=== PATIENT | female | born 1940 | race Caucasian/White ===

== ENCOUNTER 2018-07-08 06:04 | Inpatient (IN) ==
[~2018-07-08 06:04] MED LIST: BUPivacaine Liposome/PF (Exparel) Inj 20ml vial INFIL ONE; Ketorolac Inj 30 MG, Morphine Inj (Ortho Cocktail) 5 MG, BUPivacaine Inj 0.25% PF 150 MG SPLASH ONE; LIDOCAINE W/ SODIUM BICARB 0.5 ML SYR ONE; LIDOCAINE W/ SODIUM BICARB 0.5 ML SYR SUBD ONE; Lactated Ringers 1,000 ML PRIMARY IV ONE; Lactated Ringers 1,000 ML PRIMARY IV SCH; Tranexamic Acid 3,000 MG in Sodium Chloride 0.9% 100 ML IRRIG ONE; ceFAZolin Inj 2gm (Premix) 2 GM/50 ML BAG IV ONE
[2018-07-08 06:27] LABS: BILIRUBIN,URINE NEGATIVE (NEG); CLARITY,URINE CLEAR (CLEAR); COLOR,URINE YELLOW (Y); GLUCOSE, URINE (UA) NEGATIVE (NEG); OCCULT BLOOD,URINE Trace-intact (NEG); PROTEIN,URINE NEGATIVE (NEG); UROBILINOGEN,URINE 0.2 EU/dL (0.2)
[2018-07-08 06:28] LABS: URINE SAMPLE TYPE CLEAN CATCH URINE
[2018-07-08 06:31] LABS: BACTERIA,URINE RARE; SQUAMOUS EPITHELIAL CELL,UR RARE; URINE CRYSTALS FEW; WBC,URINE 0
[2018-07-08] MEDS ORDERED: PHENYLEPHRINE 10,000 MCG/1 ML VIAL ONE (06:54)
[2018-07-08] MEDS ORDERED: MIDAZOLAM 5 MG/1 ML ONE (06:54)
[2018-07-08] MEDS ORDERED: BUPIVACAINE 0.5% W/EPI MPF -30 ML VIAL IV ONE (06:55)
[2018-07-08] MEDS ORDERED: fentaNYL Inj 100 MCG/2 ML VIAL ONE (06:55)
[2018-07-08] MEDS ORDERED: Ropivacaine 0.2% VIAL 20 ML ONE (06:56)
[2018-07-08] MEDS ORDERED: ePHEDrine Inj 50 MG/ML AMP ONE (07:13)
[2018-07-08] MEDS ORDERED: Sodium Chloride 0.9% vial 60 ML ONE (07:15)
[2018-07-08] MEDS ORDERED: BACITRACIN 50,000 UNIT VIAL IRRIG ONE (07:15)
[2018-07-08] MEDS ORDERED: BUPivacaine Liposome/PF (Exparel) Inj 20ml vial INFIL ONE (07:15)
[2018-07-08] MEDS ORDERED: Sodium Chloride 0.9% 0 ML ONE (07:19)
[2018-07-08] MEDS ORDERED: Sodium Chloride 0.9% 250 ML IV ONE (07:19)
[2018-07-08] MEDS ORDERED: EPINEPHrine Inj (1:1,000) 1 mg/ml amp ONE (07:44)
[2018-07-08] MEDS ORDERED: PROPOFOL 10 MG/1 ML (200 MG/20 ML) VIAL IV ONE ×2 (08:05→09:59)
[2018-07-08] MEDS ORDERED: HYDROmorphone 2 MG/1 ML IVP PRN ×3 (09:36→14:09)
[2018-07-08] MEDS ORDERED: ATROPINE SULFATE 0.4 MG/1 ML VIAL IVP PRN (09:36)
[2018-07-08] MEDS ORDERED: LIDOCAINE W/ SODIUM BICARB 0.5 ML SYR SUBD PRN (09:36)
[2018-07-08] MEDS ORDERED: Ondansetron ODT Tab 8 MG TAB PO PRN ×3 (09:36→12:48)
[2018-07-08] MEDS ORDERED: ONDANSETRON 4 MG/2 ML VIAL IVP PRN ×2 (09:36→11:16)
--- NOTE | 2018-07-08 09:40 | CRNA.PROCE ---
Nerve Block Documentation - - Safety Measures: Time Out Taken, Site Verified - - Type of Nerve Block Used: Right Adductor Canal Nerve Block Position for Nerve Block: Supine Moniters Used During Block: EKG, SPO2, NIBP Oxygen Supplemented: Yes Sedation Used - Enter Amount in Comment Field [ANES.SEDAT]: Midazolam (mg): Yes (2), Fentanyl (mcg): Yes (50) Skin Prep Used: ChloroPrep (Twice) Draped: No Technique: Ultrasound Nerve Block Needle Used: EchoBright 100 mm Local Anesthetic - Enter Amt in Comment Field [ANES.LOCNB]: 0.5 % Bupivicaine with Epinephrine 1:200,000 (mL): Yes (10 ml in 1.5 ml alloquots), 0.2 % Ropivacaine (mL): Yes (20 ml in 1.5 ml increments) - - PreOp Block : Time In: 07:15 PreOp Block : Time Out: 07:50 Anesthesia Time - Other Weight: 52.163 kg Height: 5 ft 2 in Body Mass Index (BMI): 21.0
--- NOTE | 2018-07-08 09:42 | CRNA.PROCE ---
Central Neuraxis Block Placemt - - Safety Measures: Time Out Taken, Site Verified - - Type of Block: Subarachnoid Reason for Block: Surgical Moniters Used During Block: EKG, SPO2, NIBP Sedation Used - Enter Amount Used in Comment Field: Midazolam (mg): Yes (2 ), Fentanyl (mcg): Yes (50) Positioning: Sitting Skin Prep Used: ChloroPrep (Twice) Draped: Yes Skin Infiltration - Enter Amount Used in Comment Field: 1% Xylocaine (mL): Yes ( 2 ml) Spinal Needle Used: 22 Ella 80 mm (Took multiple passes and 3 different skin punctures to succeed) Local Anesthetic - Enter Amount Used in Comment Field: 0.75 % Bupivacaine with Dextrose (ml): Yes (1.8 ml with epi hub rinse) Additive Used - Enter Amount Used in Comment Field: Epinephrine 1:1000 Needle Rinse (mL): Yes (rinse and squirt out only) Anesthesia Time - Block Time PreOp Block : Time In: 07:15 PreOp Block : Time Out: 07:50 - Other Weight: 52.163 kg Height: 5 ft 2 in Body Mass Index (BMI): 21.0
--- NOTE | 2018-07-08 09:43 | CRNA.PROGR ---
Post Anesthesia Phase II - Post Anesthesia Phase II Patient Stable and Discharged To: Med/Surg Care Assumed By Surgeon: Carroll Chun MD Temperature: 97.7 F Pulse Rate: 51 Respiratory Rate: 23 Blood Pressure: 177/77 Pulse Ox: 98
--- NOTE | 2018-07-08 09:43 | CRNA.PROGR ---
Anesthesia Time - - Start date: 07/08/18 End date: 07/08/18 - Block Time PreOp Block : Time In: 07:15 PreOp Block : Time Out: 07:50 PreOp Block : Total Time: 35 - Total Anesthesia Time Total Anesthesia Time (minutes): 35 - Other Weight: 52.163 kg Height: 5 ft 2 in Body Mass Index (BMI): 21.0 Anesthesia Type: Spinal Block
--- NOTE | 2018-07-08 09:43 | CRNA.PROGR ---
Anesthesia Recovery Phase I - Post Anesthesia Evaluation Patient's Condition on Arrival in Phase I: Stable Patient's Condition on Arrival in Phase II: Stable
[2018-07-08] MEDS ORDERED: Lactated Ringers 1,000 ML PRIMARY IV SCH ×2 (09:45→11:30)
--- NOTE | 2018-07-08 11:14 | ORTHO.OP ---
- - -: See Dictated Operative Report Procedure Codes - Lower Extremity/Knee Procedures Primary Lower Extremity Procedure Code: 33806 : TKA (yves COOK and Iron Pacheco MD assisted)
[2018-07-08] MEDS ORDERED: diphenhydrAMINE 25 MG CAPSULE PO PRN ×2 (11:16→12:48)
[2018-07-08] MEDS ORDERED: MAG HYDROX/AL HYDROX/SIMETH 30 ML SUSP PO PRN ×2 (11:16→12:48)
[2018-07-08] MEDS ORDERED: BISACODYL 5 MG TABLET PO PRN ×2 (11:16→12:48)
[2018-07-08] MEDS ORDERED: BISACODYL 10 MG SUPPOSITORY RECTAL PRN ×2 (11:16→12:48)
[2018-07-08] MEDS ORDERED: Prochlorperazine Tab 10 MG TAB PO PRN ×2 (11:16→12:48)
[2018-07-08] MEDS ORDERED: HYDROcodone-APAP 7.5 MG-325 MG TABLET PO PRN (11:16)
[2018-07-08] MEDS ORDERED: CALCIUM CARBONATE 500 MG (TUMS) CHEWABLE TABLET PO PRN ×2 (11:16→12:48)
[2018-07-08] MEDS ORDERED: ACETAMINOPHEN 325 MG TABLET PO PRN (11:16)
[2018-07-08] MEDS ORDERED: ceFAZolin Inj 2gm (Premix) 2 GM/50 ML BAG IV SCH (11:30)
[2018-07-08] MEDS ORDERED: LORAZEPAM PO PRN (12:35)
[2018-07-08] MEDS ORDERED: INSULIN ASPART 5 UNIT SQ PRN (12:35)
--- NOTE | 2018-07-08 12:41 | DI ---
RIGHT KNEE, 07/08/2018 11:33 AM: Clinical History: Status post total knee replacement. Osteoarthritis. Previous Exam: None at this facility. Comparison is made with a CT scan of the right knee from 018. AP and lateral views are submitted. The patient is status post total right knee replacement. The pros thetic joint articulates normally. Reading: Status post total right knee replacement. The prosthetic joint articulates normally.
[2018-07-08] MEDS ORDERED: IBUPROFEN 400 MG TABLET PO PRN (12:48)
--- NOTE | 2018-07-08 12:57 | OPS CRUTCH ---
Diagnosis : Right Total Knee Arthroplasty Referral Reason: IceMan Cold Therapy Unit O: The patient was issued an IceMan Cold Therapy Unit and instructed in its proper use and care. P: No further therapy is indicated at this time. MTDD
[2018-07-08] MEDS ORDERED: ceFAZolin Inj 2 GM in Sodium Chloride 0.9% 100 ML IV SCH (13:00)
[2018-07-08] MEDS: Lactated Ringers 1,000 ML PRIMARY IV SCH (13:45)
[2018-07-08] MEDS: HYDROcodone-APAP 7.5 MG-325 MG TABLET PO PRN ×2 (14:55→20:07)
--- NOTE | 2018-07-08 15:45 | CONSULT ---
Consult Note - Consult Reason for Consult: PostOp Consulation : Ortho Requesting Physician: Adiel Primary Care Provider: NICOLE STILL - History of Present Illness History of Present Illness: Is a very nice 77-year-old female status post right total knee replacement hospitalist service was consult did for diabetes and hypertension patient has no complaints at present time pain is controlled no chest pain nausea or vomiting Past Medical History Medical History: Diabetes, hypertension, depression, chronic anticoagulation Tobacco Use: Never Smoker In the Past 12 Months, Have Used or Abuse Any of the Following Substance: None Medication / Allergies Home Medications: Home Medications 3 Medication Instructions Recorded Confirmed Type Insulin Aspart [Novolog] 5 unit SQ BID PRN vial 05/02/15 07/08/18 History Lorazepam 1 tab PO Q6H PRN tab 05/02/15 07/08/18 History Lisinopril 1 tab PO DAILY tab 09/03/16 07/08/18 History Metoprolol Tartrate 1 tab PO BID tab 09/03/16 07/08/18 History Sertraline HCl 1 tab PO DAILY tab 09/03/16 07/08/18 History Warfarin Sodium 1 tab PO DAILY tab 09/03/16 07/08/18 History Aspirin 1 tab PO QD tab 06/26/17 07/08/18 History fish oil-dha-epa 1,200 mg-144 1 cap PO QDAY cap 05/07/18 07/08/18 History mg-216 mg capsule Allergies/Adverse Reactions: Allergies 3 Allergy/AdvReac Type Severity Reaction Status Date / Time No Known Allergies Allergy Verified 07/08/18 06:35 Exam - Vitals Vital Signs: Vital Signs Temperature 97.7 F Temperature Source Oral Pulse Rate [Pulse Oximeter] 69 Pulse Rate 44 Respiratory Rate 12 Blood Pressure [Right Arm] 162/76 Blood Pressure 151/65 Pulse Ox 100 Oxygen Flow Rate 1.5 Oxygen Delivery Method Nasal Cannula Height 5 ft Weight 115 lb - General General Appearance: No Acute Distress, Cooperative - Respiratory Respiratory Exam: POSITIVE: Clear to Auscultation - Bilaterally, Breathing Non Labored, Normal To Percussion, Normal to Percussion and Palpation - Cardiovascular Cardiovascular Exam: POSITIVE: RRR, No Murmur, No Clicks, No Gallops, No Rubs, PMI Non-Displaced - GI/Abdominal GI/Abdominal Exam: POSITIVE: Normal Bowel Sounds, Non Tender, Non Distended, Soft, No Masses, No Hepatomegaly, No Splenomegaly, No Organomegaly - Extremities Extremities Exam: POSITIVE: No Clubbing Present, No Edema Present, No Cyanosis Present Assessment and Plan - Patient Problems (1) Anxiety Current Visit: No Status: Acute Comment: Continue SSRI Code(s): F41.9 - Anxiety disorder, unspecified (2) Diabetes Current Visit: No Status: Acute Comment: We'll stop her home short acting we'll start sliding scale Code(s): E11.9 - Type 2 diabetes mellitus without complications (3) Hypertension Current Visit: No Status: Acute Comment: Stable continue current meds Code(s): I10 - Essential (primary) hypertension
[2018-07-08] MEDS: ceFAZolin Inj 2 GM in Sodium Chloride 0.9% 100 ML IV SCH (16:12)
[2018-07-08] MEDS: Insulin Lispro Flexpen 300 UNIT/3 ML INSULN.PEN SUBCUT SCH (16:50)
[2018-07-08] MEDS: Metoprolol TARTRATE Tab 25 MG TAB PO SCH (20:08)
[2018-07-08] MEDS: Sertraline Tab 50 MG TAB PO SCH (20:08)
[2018-07-08] MEDS: DOCUSATE 100 MG CAPSULE PO SCH (20:08)
[2018-07-08] MEDS ORDERED: DOCUSATE 100 MG CAPSULE PO SCH (21:00)
[2018-07-08] MEDS ORDERED: Warfarin 5 MG TAB PO SCH (21:00)
[2018-07-08] MEDS ORDERED: Sodium Chloride 0.9% 200 ML IV ONE (23:58)
[2018-07-08] MEDS ORDERED: ceFAZolin 1 GM VIAL ONE (23:59)
[2018-07-09] MEDS: ceFAZolin Inj 2 GM in Sodium Chloride 0.9% 100 ML IV SCH (00:03)
[2018-07-09] MEDS: Lactated Ringers 1,000 ML PRIMARY IV SCH ×2 (00:04→10:51)
[2018-07-09] MEDS: HYDROcodone-APAP 7.5 MG-325 MG TABLET PO PRN ×5 (02:28→20:36)
[2018-07-09] MEDS: ONDANSETRON 4 MG/2 ML VIAL IVP PRN (03:28)
[2018-07-09 04:29] LABS: Hematocrit [HCT] 28.5 % (37.0-47.0); Hemoglobin [HGB] 9.7 g/dL (12.0-16.0); MEAN CORPUSCULAR HEMOGLOBIN 31.3 PG (27-31); MEAN CORPUSCULAR VOLUME 91.9 FL (81-99); MEAN PLATELET VOLUME 10.1 FL (7.4-12.2); RED BLOOD COUNT 3.1 10^6/uL (4.20-5.40)
[2018-07-09 04:41] LABS: BLOOD UREA NITROGEN 18 mg/dL (7-22); BUN/CREATININE RATIO 25.71 (6-20)
[2018-07-09] MEDS: Insulin Lispro Flexpen 300 UNIT/3 ML INSULN.PEN SUBCUT SCH ×2 (07:58→11:53)
[2018-07-09] MEDS: DOCUSATE 100 MG CAPSULE PO SCH ×2 (08:01→20:36)
[2018-07-09] MEDS: Metoprolol TARTRATE Tab 25 MG TAB PO SCH ×2 (08:01→20:36)
--- NOTE | 2018-07-09 08:07 | ORTHO.PROG ---
Last Taken Vital Signs: Vital Signs - Last Taken Temperature 97.4 F 07/09/18 06:33 Pulse Rate 75 07/09/18 06:33 Respiratory Rate 16 07/09/18 06:33 Blood Pressure 98/50 07/09/18 06:33 Pulse Ox 95 07/09/18 06:33 Subjective: Patient notes her block is wearing off but she feels her pain is reasonably controlled on IV and oral medications. She states at the current time her pain is less than what it was prior to surgery Objective: A dressing is in place patient has an ice pad and place using the ice Man device. Good motor and sensory of the foot and ankle appears the current time brisk refill good pulses. Denies any calf or thigh pain. Dressing was not removed to look at the knee per se. Laboratory Results 07/09/18 07/09/18 Range/Units 04:11 04:11 WBC 5.99 (4.8-10.8) 10^3/uL RBC 3.10 L (4.20-5.40) 10^6/uL Hgb 9.7 L (12.0-16.0) g/dL Hct 28.5 L (37.0-47.0) % MCV 91.9 (81-99) FL MCH 31.3 H (27-31) PG MCHC 34.0 (33-37) g/dL RDW Std Deviation 43.4 (39-50) fL RDW Coeff of Cassandra 13.4 (11.5-14.5) % Plt Count 192 (140-350) 10*3/uL MPV 10.1 (7.4-12.2) FL Sodium 134 L (135-145) meq/L Potassium 4.3 (3.8-5.2) meq/L Chloride 106 (98-112) meq/L Carbon Dioxide 25 (23-33) meq/L Anion Gap 3 L (5-20) BUN 18 (7-22) mg/dL Creatinine 0.7 (0.50-1.20) mg/dL BUN/Creatinine Ratio 25.71 H (6-20) Glucose 160 H (78-110) mg/dL Calculated Osmolality 282.0 (267-292) mOsm/kg Calcium 7.9 L (8.7-10.7) mg/dL Vital Signs (24 hrs) Temp Pulse Pulse Resp BP BP Pulse Ox 07/09/18 06:33 97.4 F 75 16 98/50 95 07/09/18 05:08 98.2 F 72 16 179/85 98 07/09/18 02:41 95 07/09/18 01:00 97.2 F 79 20 133/63 97 07/08/18 20:56 97.9 F 76 20 134/68 98 07/08/18 19:00 76 07/08/18 18:15 18 07/08/18 16:39 97.7 F 69 18 143/64 94 07/08/18 14:15 97.7 F 69 12 162/76 100 07/08/18 13:45 97.5 F 56 L 12 153/69 100 07/08/18 13:15 96.9 F 57 L 14 127/95 100 07/08/18 13:00 96.9 F 54 L 14 140/64 100 07/08/18 12:59 97.4 F 12 157/74 100 07/08/18 12:45 96.9 F 63 14 134/81 100 07/08/18 12:30 97.4 F 59 L 14 157/74 100 07/08/18 12:10 44 L 20 151/65 100 07/08/18 12:00 45 L 16 154/68 100 07/08/18 11:50 98.3 F 44 L 16 166/69 100 07/08/18 11:40 41 L 16 161/70 100 07/08/18 11:35 44 L 16 146/76 100 07/08/18 11:30 44 L 16 156/76 100 07/08/18 11:25 97.1 F 50 L 20 159/80 100 07/08/18 09:43 97.7 F 51 L 23 177/77 98 Assessment: Right total knee replacement doing well Postoperative anemia Plan: Patient will begin physical therapy and occupational therapy today. Patient will begin anticoagulation. She will continue with pneumatic sequential devices. Pain control as needed.
[2018-07-09] MEDS ORDERED: Warfarin 5 MG TAB PO ONE (08:12)
[2018-07-09] MEDS ORDERED: Metoprolol TARTRATE Tab 25 MG TAB PO SCH ×2 (09:00)
[2018-07-09] MEDS ORDERED: LISINOPRIL 20 MG TABLET PO SCH (09:00)
[2018-07-09] MEDS ORDERED: Lactated Ringers 1,000 ML PRIMARY IV ONE (11:24)
--- NOTE | 2018-07-09 16:22 | PDOC(PROG) ---
Date of Service: 07/09/18 Time of Service: 16:17 Interval History: No completes of chest pain, shortness breath, nausea or vomiting. States that she occasionally gets some twinges of knee pain but otherwise is doing okay. Worked with therapy this afternoon. Is on Coumadin for chronic of venous thromboembolism disease in her lower extremities. Objective : Data - Labs CBC and BMP: 07/09/18 04:11 07/09/18 04:11 Additional Lab Results: Selected Entries 07/09/18 06:28 07/09/18 11:00 Finger Stick Blood Glucose 199 H 178 H Objective : Exam - General General Appearance: No Acute Distress, Cooperative Additional General Exam Details: Vital Signs - Last Taken Temperature 97.5 F 07/09/18 11:05 Pulse Rate 69 07/09/18 11:05 Respiratory Rate 16 07/09/18 11:05 Blood Pressure 92/46 07/09/18 11:05 Pulse Ox 91 07/09/18 11:05 - Eye Eye Exam: No Scleral Icterus - ENT ENT Exam: Mucous Membranes Moist - Respiratory Respiratory Exam: Clear to Auscultation - Bilaterally, Breathing Non Labored - Cardiovascular Cardiovascular Exam: RRR, No Murmur, No Clicks, No Gallops, No Rubs, No JVD - GI/Abdominal GI/Abdominal Exam: Normal Bowel Sounds, Non Tender, Non Distended, Soft - Extremities Extremities Exam: No Clubbing Present, No Edema Present, No Cyanosis Present, Joint Swelling (Knee is dressed, dressing is clean, dry, intact. This is the right knee.) - Neurological Neurological Exam: Alert, Oriented x 3, No Facial Droop, Speech Intact / Clear Assessment and Plan - Patient Problems (1) Diabetes Current Visit: No Status: Acute Code(s): E11.9 - Type 2 diabetes mellitus without complications Qualifiers: Diabetes mellitus type: type 2 Diabetes mellitus alf insulin use: without manager long term care use Diabetes mellitus complication status: without complication Qualified Code(s): E11.9 - Type 2 diabetes mellitus without complications (2) Hypertension Current Visit: Yes Status: Chronic Code(s): I10 - Essential (primary) hypertension Qualifiers: Hypertension type: essential hypertension Qualified Code(s): I10 - Essential (primary) hypertension (3) Anxiety Current Visit: Yes Status: Chronic Code(s): F41.9 - Anxiety disorder, unspecified (4) Chronic venous embolism and thrombosis of deep vessels of both lower extremities Current Visit: Yes Status: Acute Code(s): I82.503 - Chronic embolism and thrombosis of unspecified deep veins of lower extremity, bilateral - Assessment / Plan Additional Assessment/Plan Details: Discussed with Dr. Chun regarding Coumadin. Patient had a dose earlier this morning and I'll hold off on giving her next dose this afternoon. We'll continue at 5 mg daily for now. This can service both treatment for chronic venous thromboembolism disease, history of prior DVTs, and also DVT/PE prevention in the setting of this knee replacement. PT and INR daily while here if possible. Continue physical therapy and occupational therapy. Probable swing bed. No adjustments to diabetes medications today. Given hypotension, give fluids back and stop AMADEO inhibitor. Labs in a.m.
--- NOTE | 2018-07-09 16:26 | PTI REPORT ---
Thank you for the referral of Luzma Clifford. She was seen on 07/09/18 for an inpatient evaluation status post right total knee arthroplasty. SUBJECTIVE: The patient is a 77-year-old female. The patient reports that she lives in an assisted living apartment. She states she doesn't have to use any stairs. The patient previously was independent with all ADLs. The patient is from [place] and would like to return home. PAST MEDICAL HISTORY: Past medical history can be found in the patient's medical record. OBJECTIVE FINDINGS: General observations: The patient was supine in bed upon the therapist's arrival. The patient had bed alarm on and cooler with ice attached to her leg. The patient had IV in place and Clemens catheter. Pain: The patient reports a pain level of 7/10 on the verbal analog scale (0=no pain, 10=worst pain). Bed mobility: The patient required min assist x1 for supine to sit transfer to edge of bed. Transfers: The patient required min assist x2 with walker for sit to stand transfer. Ambulation: The patient ambulated 5 feet to get to her chair. The patient required min assist x2 with walker for safety and balance and line management. ASSESSMENT: The patient is a 77-year-old female that presents status post right total knee arthroplasty. The patient would benefit from skilled therapy in order to improve overall functional mobility and to return to prior level of function. The patient's prognosis for therapy is good. Problem List: Decreased strength Decreased functional mobility Decreased endurance Short-Term Goals: To be met by discharge from inpatient: Patient will be independent with all transfers with least restrictive assistive device. Patient will be able to ambulate 150 feet with walker independently. Patient will be able to tolerate 15 minutes of continuous activity to improve functional mobility. Long-Term Goals: To be met following discharge from inpatient: Patient will be seen by outpatient physical therapy. TREATMENT PLAN: Patient will be seen B.I.D during the week and one time per day over the weekend as an inpatient for therapeutic exercises, functional activity, neuromuscular reeducation, modalities as needed, and manual therapy. INITIAL TREATMENT: Treatment today consisted of the initial evaluation followed by the patient being transferred to her chair. The patient required moderate cueing for stand to sit transfer technique. The patient was left in chair with legs elevated and proper chair alarm activated. The patient was issued a walker. ROCIO
--- NOTE | 2018-07-09 16:35 | PT PM DAY ---
Diagnosis : Right Total Knee Arthroplasty PM - Physical Therapy S: The patient states she is very tired this afternoon. She states she has been sitting up in her chair since PT left this morning. O: The patient performed sit to stand transfer with mod assist. The patient ambulated into the hallway, approximately 50 feet with walker. The patient then ambulated back to her room where she sat edge of bed and completed seated marches, seated long arc quads, seated ankle pumps, seated resisted hip abduction/adduction, and seated resisted knee flexion. The patient then transferred back to bed with stand by assist where she performed quad sets, heel slides, straight leg raises, short arc quads, and hip abduction/adduction. The patient received manual therapy in the form of very gentle passive range of motion knee flexion/extension stretching of her lower extremity. The patient was left with ice on her knee and pump on her calf and foot. A: The patient is doing very well. She still has her catheter and IV in, so we did not go downstairs. The patient was also very tired and wanted to lay down and take a nap. The patient will benefit from skilled therapy to work on balance control, motion, strengthening, and gait training. P: Continue seeing patient BID during the week and one time per day over the weekend for transfers, ambulation, and range of motion/strengthening exercises. MTDD
[2018-07-09] MEDS: Sertraline Tab 50 MG TAB PO SCH (20:36)
[2018-07-09] MEDS ORDERED: Warfarin 5 MG TAB PO SCH (21:00)
[2018-07-10] MEDS: HYDROcodone-APAP 7.5 MG-325 MG TABLET PO PRN ×5 (00:13→16:24)
[2018-07-10] MEDS: Lactated Ringers 1,000 ML PRIMARY IV SCH (04:36)
[2018-07-10 04:49] LABS: Hematocrit [HCT] 25.2 % (37.0-47.0); Hemoglobin [HGB] 8.7 g/dL (12.0-16.0); MEAN CORPUSCULAR HEMOGLOBIN 32.1 PG (27-31); MEAN CORPUSCULAR HGB CONC 34.5 g/dL (33-37); MEAN PLATELET VOLUME 10.5 FL (7.4-12.2); RED BLOOD COUNT 2.71 10^6/uL (4.20-5.40)
[2018-07-10 04:59] LABS: BLOOD UREA NITROGEN 9 mg/dL (7-22)
[2018-07-10] MEDS: Insulin Lispro Flexpen 300 UNIT/3 ML INSULN.PEN SUBCUT SCH ×2 (06:59→11:27)
[2018-07-10] MEDS: DOCUSATE 100 MG CAPSULE PO SCH ×2 (08:10→22:03)
[2018-07-10] MEDS: Metoprolol TARTRATE Tab 25 MG TAB PO SCH ×2 (08:10→22:03)
--- NOTE | 2018-07-10 09:17 | CRNA.PROGR ---
Anesthesia Note - Progress Notes Anesthesia Progress Note: Lying in bed this am. Appears comfortable. States she's comfortable. One bout of dry heaves yesterday. Clemens catheter out. States she's been walking. Laboratory Results 07/10/18 07/10/18 07/10/18 Range/Units 04:08 04:08 04:08 WBC 6.08 (4.8-10.8) 10^3/uL RBC 2.71 L (4.20-5.40) 10^6/uL Hgb 8.7 L (12.0-16.0) g/dL Hct 25.2 L (37.0-47.0) % MCV 93.0 (81-99) FL MCH 32.1 H (27-31) PG MCHC 34.5 (33-37) g/dL RDW Std Deviation 43.4 (39-50) fL RDW Coeff of Cassandra 13.2 (11.5-14.5) % Plt Count 155 (140-350) 10*3/uL MPV 10.5 (7.4-12.2) FL PT 12.1 H (9.7-11.4) secs INR 1.17 (0.00-5.90) N/A Sodium 131 L (135-145) meq/L Potassium 4.1 (3.8-5.2) meq/L Chloride 102 (98-112) meq/L Carbon Dioxide 25 (23-33) meq/L Anion Gap 4 L (5-20) BUN 9 (7-22) mg/dL Creatinine 0.6 (0.50-1.20) mg/dL BUN/Creatinine Ratio 15.00 (6-20) Glucose 162 H (78-110) mg/dL Calculated Osmolality 274.0 (267-292) mOsm/kg Calcium 7.9 L (8.7-10.7) mg/dL Vital Signs - Last Taken Temperature 97.5 F 07/10/18 06:38 Pulse Rate 65 07/10/18 07:00 Respiratory Rate 14 07/10/18 07:00 Blood Pressure 104/54 07/10/18 06:38 Pulse Ox 94 07/10/18 06:38 Somewhat anemic. No apparent anesthesia problems.
--- NOTE | 2018-07-10 13:50 | ORTHO.PROG ---
Last Taken Vital Signs: Vital Signs - Last Taken Temperature 97.6 F 07/10/18 11:18 Pulse Rate 70 07/10/18 11:18 Respiratory Rate 12 07/10/18 11:18 Blood Pressure 123/54 07/10/18 11:18 Pulse Ox 94 07/10/18 11:18 Subjective: Patient doing well today states her pain is controlled with her medication. Objective: Dressing is clean and dry the pack is still in place with machine working her motor and sensory exam in the lower extremity is good she denies calf or thigh pain no marked swelling or edema distally. Laboratory Results 07/10/18 07/10/18 07/10/18 Range/Units 04:08 04:08 04:08 WBC 6.08 (4.8-10.8) 10^3/uL RBC 2.71 L (4.20-5.40) 10^6/uL Hgb 8.7 L (12.0-16.0) g/dL Hct 25.2 L (37.0-47.0) % MCV 93.0 (81-99) FL MCH 32.1 H (27-31) PG MCHC 34.5 (33-37) g/dL RDW Std Deviation 43.4 (39-50) fL RDW Coeff of Cassandra 13.2 (11.5-14.5) % Plt Count 155 (140-350) 10*3/uL MPV 10.5 (7.4-12.2) FL PT 12.1 H (9.7-11.4) secs INR 1.17 (0.00-5.90) N/A Sodium 131 L (135-145) meq/L Potassium 4.1 (3.8-5.2) meq/L Chloride 102 (98-112) meq/L Carbon Dioxide 25 (23-33) meq/L Anion Gap 4 L (5-20) BUN 9 (7-22) mg/dL Creatinine 0.6 (0.50-1.20) mg/dL BUN/Creatinine Ratio 15.00 (6-20) Glucose 162 H (78-110) mg/dL Calculated Osmolality 274.0 (267-292) mOsm/kg Calcium 7.9 L (8.7-10.7) mg/dL Vital Signs (24 hrs) Temp Pulse Resp BP BP Pulse Ox 07/10/18 11:18 97.6 F 70 12 123/54 94 07/10/18 07:00 65 14 07/10/18 06:38 97.5 F 61 12 104/54 94 07/10/18 04:27 98.1 F 69 16 114/58 94 07/10/18 00:16 97.3 F 76 16 121/60 95 07/09/18 21:00 96.9 F 88 18 155/78 96 07/09/18 19:00 88 18 07/09/18 16:46 98.6 F 87 14 130/62 95 Assessment: Right total knee replacement Postoperative anemia Plan: Continue current plan with physical therapy and occupational therapy. Patient will continue with anticoagulation with Coumadin and pneumatic sequential devices. Pain control on oral and IV medication as needed. We'll follow hematocrit and hemoglobin very closely may require blood transfusion.
[2018-07-10] MEDS ORDERED: HYDROcodone-APAP 7.5 MG-325 MG TABLET PO PRN (16:17)
--- NOTE | 2018-07-10 16:21 | PT.PROG ---
Progress Note Progress Note: S. Patient stated that she is not feeling well this afternoon. O. Patient ambulated 20 feet to the wheelchair and was wheeled to the therapy gym where she transferred to the mat table and had heat to her knee, then transferred to the wheelchair and was returned to her room where she ambulated 20 feet to her bed and was left with alarm and call light. A. patient was unable to perform exercises due to nausea. Patient would continue to benefit from skilled therapy to increase strength and mobility at this time. P. Continue POC.
--- NOTE | 2018-07-10 16:22 | PDOC(PROG) ---
Date of Service: 07/10/18 Time of Service: 16:18 Interval History: No chest pain, shortness breath, but the patient is having some vomiting. She' s felt nauseous through the day. She states that her pain in her knee is much worse and she's been taking the hydrocodone however she has been somnolent and confused and sleepy through the day according to her daughter. Currently the patient is alert and feels like her pain might be around a 4 out of 10 and she would like a pain pill but would like to keep her from doing too and just do one to see if this helps. Objective : Data - Labs CBC and BMP: 07/10/18 04:08 07/10/18 04:08 Additional Lab Results: 07/10/18 04:08 PT 12.1 H INR 1.17 Selected Entries 07/10/18 06:37 07/10/18 11:00 07/10/18 16:00 Finger Stick Blood Glucose 192 H 186 H 161 H Objective : Exam - General General Appearance: No Acute Distress, Cooperative Additional General Exam Details: Vital Signs - Last Taken Temperature 97.6 F 07/10/18 11:18 Pulse Rate 70 07/10/18 11:18 Respiratory Rate 12 07/10/18 11:18 Blood Pressure 123/54 07/10/18 11:18 Pulse Ox 94 07/10/18 11:18 - Eye Eye Exam: No Scleral Icterus - ENT ENT Exam: Mucous Membranes Moist - Respiratory Respiratory Exam: Clear to Auscultation - Bilaterally, Breathing Non Labored - Cardiovascular Cardiovascular Exam: RRR, No Murmur, No Clicks, No Gallops, No Rubs, No JVD - GI/Abdominal GI/Abdominal Exam: Normal Bowel Sounds, Non Tender, Non Distended, Soft - Extremities Extremities Exam: No Clubbing Present, No Edema Present, No Cyanosis Present Additional Extremities Exam Details: Right knee is dressed, dressing is clean, dry, and intact - Neurological Neurological Exam: Alert, Oriented x 3, No Facial Droop, Speech Intact / Clear Assessment and Plan - Patient Problems (1) Diabetes Current Visit: No Status: Acute Code(s): E11.9 - Type 2 diabetes mellitus without complications Qualifiers: Diabetes mellitus type: type 2 Diabetes mellitus intermodal dispatcher insulin use: without fci use Diabetes mellitus complication status: without complication Qualified Code(s): E11.9 - Type 2 diabetes mellitus without complications (2) Hypertension Current Visit: Yes Status: Chronic Code(s): I10 - Essential (primary) hypertension Qualifiers: Hypertension type: essential hypertension Qualified Code(s): I10 - Essential (primary) hypertension (3) Anxiety Current Visit: Yes Status: Chronic Code(s): F41.9 - Anxiety disorder, unspecified (4) Chronic venous embolism and thrombosis of deep vessels of both lower extremities Current Visit: Yes Status: Acute Code(s): I82.503 - Chronic embolism and thrombosis of unspecified deep veins of lower extremity, bilateral (5) Postoperative anemia Current Visit: Yes Status: Acute Code(s): D64.9 - Anemia, unspecified - Assessment / Plan Additional Assessment/Plan Details: Check blood counts Tomorrow. No need for transfusion today. Continue monitoring PT and INR while in hospital. INR up slightly. Continue Coumadin at 5 mg by mouth daily at bedtime. Decrease hydrocodone 1 tablet every 4 hours when necessary and is still sedated may need to decrease hydrocodone dose. Continue PT and OT. No changes to diabetes medications blood sugars reviewed and looked good to me
--- NOTE | 2018-07-10 16:26 | OTI REPORT ---
Thank you for the referral of Luzma Clifford. She was seen on 07/10/18 for an occupational therapy inpatient evaluation status post right total knee arthroplasty. SUBJECTIVE: The patient is a 77-year-old female. The patient currently reports a pain level of 7 to 8/10 on the verbal analog scale (0=no pain, 10=worst pain); however, the patient agrees to participate in occupational therapy evaluation. The patient reports that she lives in [place], [place] by herself. The patient reports she was driving at prior level of function. The patient reports that primarily she uses her back entrance which has no steps, but if she is getting her mail, there are 8 steps to get inside. 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 The patient is hoping to return to work as soon as possible. The patient's bathroom set up includes a comfort height toilet as well as a walk in tub/ shower combination. The patient's daughter reports she will have a shower chair available when the patient returns home. She also has grab bars and a hand held shower hose. At prior level of function, the patient was independent in all ADLs and iADLs and just had pain in her bilateral knees. PAST MEDICAL HISTORY: Past medical history can be found in the patient's medical record. OBJECTIVE FINDINGS: Strength: The patient demonstrates upper extremity strength in the left shoulder of 4/5 and 4+/5 in the right shoulder. Elbow flexion bilaterally, wrist flexion/extension bilaterally, and hand strength bilaterally is 4+/5. Range of motion: The patient demonstrated upper extremity range of motion in the left shoulder that is 75% of full. She does report that she had a reverse total shoulder on the left side. Upper extremity range of motion on the right side is within functional limits. Bilateral range of motion for the elbows, hands, and wrists is within functional limits. Transfers: The patient demonstrated the ability to stand from a recliner chair with minimal assistance. Ambulation: The patient did require extra time to ambulate; however, was able to ambulate at a slow pace x15 feet to the hallway with a standard walker. At prior level of function the patient did not use any adaptive equipment for mobility. Activities of daily living: The patient tolerated standing at the sink x4 minutes to complete grooming tasks to include teeth brushing, hair combing, and face washing. The patient was instructed in the use of adaptive equipment for lower body dressing to include donning and doffing socks as well as donning shorts. The patient completed lower extremity dressing tasks with mod assist and may require further instruction in the use of adaptive equipment. ASSESSMENT: The patient's rehab potential is good. Problem List: Decreased upper extremity strength, specifically in the left upper extremity Decreased functional mobility Decreased ability to perform transfers Decreased activity tolerance Decreased balance Decreased ability to perform ADLs Short-Term Goals: To be met by discharge from inpatient: Patient will improve bilateral upper extremity strength by one manual muscle grade. Patient will increase standing balance/activity tolerance to stand at the sink x10 minutes with zero losses of balance in order to complete standing grooming tasks. Patient will demonstrate the ability to complete lower extremity dressing with modified independence with use of adaptive equipment as needed. Patient will complete a seated showering task to include a shower transfer with modified independence with adaptive equipment as needed. Patient will complete all functional transfers to include toilet transfer, bed mobility, and sit to stand transfer with stand by assistance only. Long-Term Goals: To be met following discharge from inpatient: Patient will return home and may be seen by outpatient physical therapy in [place]. TREATMENT PLAN: Patient will be seen B.I.D during the week and one time per day over the weekend as an inpatient to address the above goals and objectives. INITIAL TREATMENT: Treatment today consisted of the initial evaluation followed by instruction in lower extremity dressing with the use of a sock aide and a disbursing agent. The patient was issued a sock aide and a disbursing agent. The patient ambulated x15 feet with contact guard assist for safety. The patient performed standing balance/ activity tolerance activities including grooming tasks at the sink x4 minutes. ROCIO
--- NOTE | 2018-07-10 16:30 | PT AM DAY ---
Diagnosis : Right Total Knee Arthroplasty AM - Physical Therapy S: The patient states she has not had a bowel movement in a couple of days and it appeared that her pain medication was making her very nauseous. O: The patient was seen in therapy this morning for open chain and closed chain exercises. She did transfer x5 with verbal and tactile cueing and ambulated approximately 40 feet before her nausea kicked in. A: The patient demonstrated -3 degrees of extension to 85 degrees of knee flexion. She was very nauseous and had some pain in her stomach upon standing. The patient states she lives in an assisted living program in [place]. We will probably be doing a swingbed program here in [place] until she can return to that environment independently. P: Continue seeing patient BID during the week and one time per day over the weekend for transfers, ambulation, and range of motion/strengthening exercises. MTDD
[2018-07-10] MEDS ORDERED: LACTULOSE 20 GM PACKET PO ONE (18:43)
[2018-07-10] MEDS: Sertraline Tab 50 MG TAB PO SCH (22:03)
[2018-07-10] MEDS: Warfarin 5 MG TAB PO SCH (22:03)
[2018-07-10] MEDS: ACETAMINOPHEN 325 MG TABLET PO PRN (22:04)
[2018-07-10] MEDS: ONDANSETRON 4 MG/2 ML VIAL IVP PRN (22:04)
[2018-07-10] MEDS: LACTULOSE 20 GM PACKET PO SCH (23:04)
[2018-07-11 05:47] LABS: Hematocrit [HCT] 26.6 % (37.0-47.0); Hemoglobin [HGB] 9.2 g/dL (12.0-16.0); MEAN CORPUSCULAR HEMOGLOBIN 31.4 PG (27-31); MEAN CORPUSCULAR HGB CONC 34.6 g/dL (33-37); MEAN CORPUSCULAR VOLUME 90.8 FL (81-99); MEAN PLATELET VOLUME 10.5 FL (7.4-12.2); RED BLOOD COUNT 2.93 10^6/uL (4.20-5.40)
[2018-07-11 06:10] LABS: BLOOD UREA NITROGEN 6 mg/dL (7-22)
[2018-07-11] MEDS: Insulin Lispro Flexpen 300 UNIT/3 ML INSULN.PEN SUBCUT SCH ×2 (07:39→11:15)
[2018-07-11] MEDS: DOCUSATE 100 MG CAPSULE PO SCH ×2 (08:21→20:04)
[2018-07-11] MEDS: ACETAMINOPHEN 325 MG TABLET PO PRN (08:21)
[2018-07-11] MEDS: Metoprolol TARTRATE Tab 25 MG TAB PO SCH ×2 (08:22→20:04)
[2018-07-11] MEDS: LACTULOSE 20 GM PACKET PO SCH (08:22)
--- NOTE | 2018-07-11 08:31 | ORTHO.PROG ---
Last Taken Vital Signs: Vital Signs - Last Taken Temperature 98.2 F 07/11/18 04:52 Pulse Rate 83 07/11/18 04:52 Respiratory Rate 16 07/11/18 04:52 Blood Pressure 153/75 07/11/18 04:52 Pulse Ox 93 07/11/18 04:52 Subjective: Patient is just struggled with nausea over the last 18 hours as been significantly limiting her in her ability to control her pain because she is afraid of taking pain medication. Objective: Examination shows that the knee is in good condition was no marked swelling distally or thigh pain. Her dressing is clean and dry. Motor and sensory exam is nonfocal with good pulses brisk refill Laboratory Results 07/11/18 07/11/18 07/11/18 Range/Units 05:05 05:05 05:05 WBC 7.74 (4.8-10.8) 10^3/uL RBC 2.93 L (4.20-5.40) 10^6/uL Hgb 9.2 L (12.0-16.0) g/dL Hct 26.6 L (37.0-47.0) % MCV 90.8 (81-99) FL MCH 31.4 H (27-31) PG MCHC 34.6 (33-37) g/dL RDW Std Deviation 41.0 (39-50) fL RDW Coeff of Cassandra 12.8 (11.5-14.5) % Plt Count 194 (140-350) 10*3/uL MPV 10.5 (7.4-12.2) FL PT 12.3 H (9.7-11.4) secs INR 1.19 (0.00-5.90) N/A Sodium 128 L (135-145) meq/L Potassium 4.1 (3.8-5.2) meq/L Chloride 98 (98-112) meq/L Carbon Dioxide 25 (23-33) meq/L Anion Gap 5 (5-20) BUN 6 L (7-22) mg/dL Creatinine 0.5 (0.50-1.20) mg/dL BUN/Creatinine Ratio 12.00 (6-20) Glucose 155 H (78-110) mg/dL Calculated Osmolality 266.0 L (267-292) mOsm/kg Calcium 8.3 L (8.7-10.7) mg/dL Vital Signs (24 hrs) Temp Pulse Resp BP Pulse Ox 07/11/18 04:52 98.2 F 83 16 153/75 93 07/10/18 23:36 97.9 F 88 16 163/88 92 07/10/18 20:24 98.4 F 78 16 156/78 92 07/10/18 16:16 98.2 F 81 16 141/91 91 07/10/18 11:18 97.6 F 70 12 123/54 94 Assessment: Right total knee replacement Anemia postoperatively, patient also with a low hematocrit preoperatively in the 31-33 range. Nausea Plan: At this point patient is going to try a lower dose of the hydrocodone to see if she tolerates is better. Taken to with a 7.5 based on her size and weight may be part of the issue and we'll see if coming down the dose and spreading it out maybe is helpful. I would not have her on any anti-inflammatory agents and she is anticoagulated with Coumadin. The other potential issue is patient is rate controlled with metoprolol and her hematocrit is low. Patient normally runs a low to begin with however based on her age previous need for cardiac workup am wondering if this may be somewhat problematic for her and may be she requires consideration for transfusion. I like to discuss this with the hospitalist. Continue with current care
[2018-07-11] MEDS ORDERED: HYDROcodone-APAP 5 MG -325 MG TABLET PO PRN (08:38)
--- NOTE | 2018-07-11 11:06 | OT.PROG ---
Progress Note Progress Note: S: pt reports that she is not as nauseous as she was yesterday. She did want to have breakfast before going to therapy. O: pt was seen in her room and demonstrated ability to complete bed mobility Ind. She then completed joselo/doffing of socks with use of sockaid. She then transferred to restroom with CGA. AFter completing transfer she did return to her chair to have breakfast. She completed transfer from chair to hallway approx 15 ft to w/c. After transferring downstairs she completed x1 sit to stand with min A and transferred to mat table. She was educated on bed mobility into bed while using non affected leg to hook affected leg and she did end up needing CGA to complete LE mobility onto mat table. A: pt participated much better today as nausea was not as bed. Her incision area looked good at this point. She also completed use of LE A.E well when donning socks. P: continue per POC.
[2018-07-11] MEDS ORDERED: LACTULOSE 20 GM PACKET PO PRN (12:36)
--- NOTE | 2018-07-11 12:42 | PDOC(PROG) ---
Date of Service: 07/11/18 Time of Service: 12:36 Interval History: no chest pain, no shortness of breath. knee pain much better, and constipation resolved. patient states nausea is now resolved. eating roast beef sandwich at lunch with no nausea. Objective : Data - Labs CBC and BMP: 07/11/18 05:05 07/11/18 05:05 Additional Lab Results: 07/11/18 05:05 PT 12.3 H INR 1.19 Objective : Exam - General General Appearance: No Acute Distress, Cooperative Additional General Exam Details: Vital Signs - Last Taken Temperature 99.4 F 07/11/18 09:00 Pulse Rate 66 07/11/18 09:00 Respiratory Rate 20 07/11/18 09:00 Blood Pressure 178/82 07/11/18 09:00 Pulse Ox 98 07/11/18 09:00 - Eye Eye Exam: No Scleral Icterus - ENT ENT Exam: Mucous Membranes Moist - Respiratory Respiratory Exam: Clear to Auscultation - Bilaterally, Breathing Non Labored - Cardiovascular Cardiovascular Exam: RRR, No Murmur, No Clicks, No Gallops, No Rubs, No JVD - GI/Abdominal GI/Abdominal Exam: Normal Bowel Sounds, Non Tender, Non Distended, Soft - Extremities Extremities Exam: No Clubbing Present, No Edema Present, No Cyanosis Present Additional Extremities Exam Details: knee dressed, dressing is clean, dry, and intact. 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: without chcf use Diabetes mellitus complication status: without complication Qualified Code(s): E11.9 - Type 2 diabetes mellitus without complications (2) Hypertension Current Visit: Yes Status: Chronic Code(s): I10 - Essential (primary) hypertension Qualifiers: Hypertension type: essential hypertension Qualified Code(s): I10 - Essential (primary) hypertension (3) Anxiety Current Visit: Yes Status: Chronic Code(s): F41.9 - Anxiety disorder, unspecified (4) Chronic venous embolism and 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 I think nausea was probably related to constipation, possibly due to narcotic Patient's sodium is starting to drift down a bit, that could be SIADH in relation to pain. We will see what it is tomorrow. This could also cause nausea so we'll have to watch this. Resume lisinopril. PT and OT. Continue Coumadin, INR noted. Hopefully we'll see a bump in the next 2 days. Possible swing bed tomorrow.
--- NOTE | 2018-07-11 16:34 | PT.PROG ---
Progress Note Progress Note: S. Patient stated that she is feeling much better today compared to yesterday, she reports that she had a lot of pain in the night. O. Patient ambulated 15 feet to the wheelchair and was wheeled to the therapy gym where she had heat and micro massage to decrease pain and edema, Patient then performed heel slides, quad sets, ankle pumps, short arc quads, seated long arc quads all x 10 and self knee flexion 4x30 seconds. Patient then performed sit to stands x 5 and ambulated 30 feet to the wheelchair and was returned to her room where she was left with alarm and call light. A. patient tolerated therapy well this morning, she was able to perform all exercises with no increase in pain or discomfort, Patient continues to struggle with fatigue and would benefit from skilled therapy to increase strength and mobility. P. continue POC.
--- NOTE | 2018-07-11 16:43 | PT.PROG ---
Progress Note Progress Note: S. Patient stated that she is having some pain this afternoon however is willing to go to the therapy gym. O. Patient ambulated 15 feet to the wheelchair and was wheeled to the therapy gym where she had heat to decrease pain, Patient then performed heel slides, quad sets, ankle pumps, short arc quads, seated long arc quads all x 10 and self knee flexion 4x30 seconds. Patient then performed sit to stands x 5 and ambulated 60 feet to the wheelchair and was returned to her room where she was left with alarm and call light. A. patient tolerated therapy well this afternoon, she continues to fatigue easily, she was able to perform all exercises with no complaints of pain or problems, patient continues to require min assist with supine to sit transfers and ambulation, Patient would continue to benefit from skilled therapy to increase strength and mobility. P. Continue POC.
[2018-07-11] MEDS: Sertraline Tab 50 MG TAB PO SCH (20:03)
[2018-07-11] MEDS: Warfarin 5 MG TAB PO SCH (20:04)
[2018-07-12 05:33] LABS: Hematocrit [HCT] 28.6 % (37.0-47.0); Hemoglobin [HGB] 9.9 g/dL (12.0-16.0); MEAN CORPUSCULAR HEMOGLOBIN 31.2 PG (27-31); MEAN CORPUSCULAR HGB CONC 34.6 g/dL (33-37); MEAN CORPUSCULAR VOLUME 90.2 FL (81-99); MEAN PLATELET VOLUME 10.3 FL (7.4-12.2); RED BLOOD COUNT 3.17 10^6/uL (4.20-5.40)
[2018-07-12 05:58] LABS: BLOOD UREA NITROGEN 6 mg/dL (7-22)
[2018-07-12] MEDS ORDERED: HALOPERIDOL LACTATE 5 MG/1 ML AMPULE IVP ONE (06:54)
[2018-07-12] MEDS: Insulin Lispro Flexpen 300 UNIT/3 ML INSULN.PEN SUBCUT SCH (07:17)
[2018-07-12] MEDS ORDERED: Acetaminophen 1000mg Inj 1,000 MG/100 ML VIAL IV ONE (07:20)
--- NOTE | 2018-07-12 08:25 | DI ---
INDICATION: Altered mental status TECHNIQUE: Multiple, contiguous 2.5 mm axial cuts of the brain are obtained from the posterior fossa to the cranial vault. Sagittal and coronal reformatted images provided. No IV contrast is administered. COMPARISON: None FINDINGS: No intracranial hemorrhage, abnormal intra- or extra-axial collections or parenchymal lesions are seen. There are involutional changes with prominence of the sulci, basal cisterns and ventricles. Scattered white matter hypoattenuations are present, likely from small vessel disease. The tafoya-white differentiation is preserved. No evidence of mass effect, midline shift, or edema. The osseous structures are unremarkable. The visualized portions of the paranasal sinuses are clear. Status post bilateral lens surgery. Atherosclerotic vascular disease. IMPRESSION: 1. No acute intracranial process. 2. Involutional changes with small vessel disease.
--- NOTE | 2018-07-12 08:27 | EKG ---
[address] [address] Measurements Intervals [place] Rate: 114 P: 60 [place]: 152 QRS: 9 QRSD: 91 T: 31 QT: 329 QTc: 396 Interpretive Statements SINUS TACHYCARDIA ABNORMAL RHYTHM ECG No previous ECG available for comparison Electronically Signed On 07-14-18 16:46:32 MDT by Jose Eduardo Lacey [email or web address]
[2018-07-12 08:45] LABS: BILIRUBIN,URINE NEGATIVE (NEG); CLARITY,URINE CLEAR (CLEAR); COLOR,URINE YELLOW (Y); GLUCOSE, URINE (UA) NEGATIVE (NEG); OCCULT BLOOD,URINE Trace-intact (NEG); PH,URINE 8.5 (5.0-8.5); PROTEIN,URINE 30 mg/dl (NEG); URINE SAMPLE TYPE CLEAN CATCH URINE; UROBILINOGEN,URINE 0.2 EU/dL (0.2); WBC,URINE 0-1
--- NOTE | 2018-07-12 08:45 | DI ---
Chest PA and lateral views INDICATION: Fever COMPARISON: None FINDINGS: PA and lateral views of the chest are obtained. The cardiomediastinal silhouette is within normal limits. Lungs are clear. No pleural effusions. Status post left total shoulder arthroplasty. Partially imaged degenerative changes of the cervical spine. Left chest wall implanted device. Bony elements are within normal limits. IMPRESSION: Postoperative findings as outlined above. Otherwise, no acute cardiopulmonary disease.
[2018-07-12 08:46] LABS: RENAL EPITHELIAL CELLS,URINE RARE; SQUAMOUS EPITHELIAL CELL,UR FEW
[2018-07-12] MEDS ORDERED: LISINOPRIL 20 MG TABLET PO SCH (09:00)
[2018-07-12] MEDS ORDERED: ASPIRIN 81 MG (BABY) CHEWABLE TABLET PO SCH (09:00)
[2018-07-12] MEDS ORDERED: LORazepam 2 MG/1 ML VIAL IVP STA (09:08)
--- NOTE | 2018-07-12 09:17 | OT.PROG ---
Progress Note Progress Note: S: Nursing/family reported that pt is having other medical issues at this time and is on hold from therapy for now.
[2018-07-12] MEDS: DOCUSATE 100 MG CAPSULE PO SCH (09:24)
[2018-07-12] MEDS: Metoprolol TARTRATE Tab 25 MG TAB PO SCH (09:31)
--- NOTE | 2018-07-12 09:46 | ORTHO.PROG ---
Last Taken Vital Signs: Vital Signs - Last Taken Temperature 99.2 F 07/12/18 06:50 Pulse Rate 118 H 07/12/18 06:50 Respiratory Rate 20 07/12/18 06:50 Blood Pressure 183/95 07/12/18 06:50 Pulse Ox 93 07/12/18 06:50 Subjective: Patient notes to be seeing things on the ceiling intermittently. Patient states she feels very anxious also. Patient notes that she has a history of panic attacks and is sort of feels like them but she never has hallucinations. Patient verbalizes that she is seeing things Objective: Examination shows that the patient is generally alert she knows why she is in the hospital she knows where she is and she also notes that she is hallucinating and seeing things. She verbalizes the fact that she is seeing shimmering silver balls along the curtain tract intermittently and that she was seeing and talking to people last night. She is well aware that if she is hallucinating. Patient denies a headache she notes that she is not having any significant pain patient notes that she feels anxious. Patient did have her frequency of urination last PM. Patient states that she feels a little short of breath. Notes that she feels short of breath when she is anxious. Her dressing under knee was removed which showed no active drainage or fluid the incision is clean and dry of his bruising and ecchymosis bk are in place no dehiscence or active drainage. She denies any calf pain. She does complain of some discomfort with palpation around the knee. A little discomfort with palpation in the lower thigh region but not up near the hip with the femoral vein more proximally. No significant adductor hiatus pain. Abnormal Lab Results (Last 24 Hours) Range/Units 07/12/18 07/12/18 07/12/18 04:45 04:45 04:45 RBC (4.20-5.40) 10^6/uL 3.17 L Hgb (12.0-16.0) g/dL 9.9 L Hct (37.0-47.0) % 28.6 L MCH (27-31) PG 31.2 H PT (9.7-11.4) secs 15.5 H Sodium (135-145) meq/L 134 L D Potassium (3.8-5.2) meq/L 3.7 L BUN (7-22) mg/dL 6 L Glucose (78-110) mg/dL 176 H Calcium (8.7-10.7) mg/dL 8.6 L Urine Protein (NEG) mg/dl Urine Occult Blood (NEG) Range/Units 07/12/18 08:20 RBC (4.20-5.40) 10^6/uL Hgb (12.0-16.0) g/dL Hct (37.0-47.0) % MCH (27-31) PG PT (9.7-11.4) secs Sodium (135-145) meq/L Potassium (3.8-5.2) meq/L BUN (7-22) mg/dL Glucose (78-110) mg/dL Calcium (8.7-10.7) mg/dL Urine Protein (NEG) mg/dl 30 A Urine Occult Blood (NEG) Trace-intact H Vital Signs (24 hrs) Temp Pulse Resp BP Pulse Ox 07/12/18 06:50 99.2 F 118 H 20 183/95 93 07/12/18 04:57 98.9 F 106 H 20 169/89 98 07/12/18 00:37 98.9 F 99 22 182/97 94 07/11/18 19:21 99.0 F 97 18 184/81 96 07/11/18 16:58 99.1 F 82 20 161/77 93 07/11/18 13:00 99.5 F 77 20 137/80 90 Laboratory Results 07/12/18 07/12/18 07/12/18 Range/Units 04:45 04:45 04:45 WBC 5.82 (4.8-10.8) 10^3/uL RBC 3.17 L (4.20-5.40) 10^6/uL Hgb 9.9 L (12.0-16.0) g/dL Hct 28.6 L (37.0-47.0) % MCV 90.2 (81-99) FL MCH 31.2 H (27-31) PG MCHC 34.6 (33-37) g/dL RDW Std Deviation 41.4 (39-50) fL RDW Coeff of Cassandra 12.9 (11.5-14.5) % Plt Count 268 (140-350) 10*3/uL MPV 10.3 (7.4-12.2) FL PT 15.5 H (9.7-11.4) secs INR 1.50 (0.00-5.90) N/A Sodium 134 L D (135-145) meq/L Potassium 3.7 L (3.8-5.2) meq/L Chloride 101 (98-112) meq/L Carbon Dioxide 24 (23-33) meq/L Anion Gap 9 (5-20) BUN 6 L (7-22) mg/dL Creatinine 0.5 (0.50-1.20) mg/dL BUN/Creatinine Ratio 12.00 (6-20) Glucose 176 H (78-110) mg/dL Calculated Osmolality 279.0 (267-292) mOsm/kg Calcium 8.6 L (8.7-10.7) mg/dL Troponin I (< 0.040) ng/mL Ur Collection Type Urine Color (Y) Urine Clarity (CLEAR) Urine pH (5.0-8.5) Ur Specific [place] (1.005-1.030) Urine Protein (NEG) mg/dl Urine Glucose (UA) (NEG) mg/dL Urine Ketones (NEG) Urine Occult Blood (NEG) Urine Nitrate (NEG) Urine Bilirubin (NEG) Urine Urobilinogen (0.2) EU/dL Ur Leukocyte Esterase (NEG) Urine RBC (NONE) /hpf Urine WBC (NONE) Ur Squamous Epith Cells (NONE) Ur Renal Epithelial Cell (NONE) Urine Crystals Urine Bacteria (NONE) Urine Casts (NONE) Urine Mucus (NONE) Urine Trichomonas (NONE) Urine Yeast (NONE) Ur Culture Indicated? 07/12/18 07/12/18 Range/Units 07:20 08:20 WBC (4.8-10.8) 10^3/uL RBC (4.20-5.40) 10^6/uL Hgb (12.0-16.0) g/dL Hct (37.0-47.0) % MCV (81-99) FL MCH (27-31) PG MCHC (33-37) g/dL RDW Std Deviation (39-50) fL RDW Coeff of Cassandra (11.5-14.5) % Plt Count (140-350) 10*3/uL MPV (7.4-12.2) FL PT (9.7-11.4) secs INR (0.00-5.90) N/A Sodium (135-145) meq/L Potassium (3.8-5.2) meq/L Chloride (98-112) meq/L Carbon Dioxide (23-33) meq/L Anion Gap (5-20) BUN (7-22) mg/dL Creatinine (0.50-1.20) mg/dL BUN/Creatinine Ratio (6-20) Glucose (78-110) mg/dL Calculated Osmolality (267-292) mOsm/kg Calcium (8.7-10.7) mg/dL Troponin I < 0.012 (< 0.040) ng/mL Ur Collection Type Clean catch urine Urine Color Yellow (Y) Urine Clarity Clear (CLEAR) Urine pH 8.5 (5.0-8.5) Ur Specific [place] 1.015 (1.005-1.030) Urine Protein 30 A (NEG) mg/dl Urine Glucose (UA) Negative (NEG) mg/dL Urine Ketones 40 (NEG) Urine Occult Blood Trace-intact H (NEG) Urine Nitrate Negative (NEG) Urine Bilirubin Negative (NEG) Urine Urobilinogen 0.2 (0.2) EU/dL Ur Leukocyte Esterase Negative (NEG) Urine RBC 1-3 (NONE) /hpf Urine WBC 0-1 (NONE) Ur Squamous Epith Cells Few (NONE) Ur Renal Epithelial Cell Rare (NONE) Urine Crystals None Urine Bacteria None (NONE) Urine Casts None (NONE) Urine Mucus Moderate (NONE) Urine Trichomonas None (NONE) Urine Yeast None (NONE) Ur Culture Indicated? Culture not set Assessment: Right total knee replacement Anemia, patient usually runs 31-33 prior to surgery and is currently 28 hematocrit. Hallucinations/agitation/anxiety Plan: Patient is in the room with both of her daughters and is very much aware that she is having these hallucinations and is very anxious but just can't seem to stop her help herself. Patient notes this feels very much like her anxiety attacks except for the hallucinations. She had a CT of the have this morning with results pending and laboratory studies were drawn which don't seem to show any significant aberrations I would explain her symptoms as well as a UA which is relatively benign. We'll await the results of CT scan discussed the case with Dr. Contreras.
[2018-07-12] MEDS: LABETALOL 20 MG/4 ML (5 MG/1 ML) SYRINGE IVP PRN ×2 (09:56→11:09)
[2018-07-12] MEDS ORDERED: LORazepam 2 MG/1 ML VIAL IVP ONE (10:25)
[2018-07-12] MEDS ORDERED: diphenhydrAMINE 50 MG/1 ML VIAL IVP ONE (10:31)
[2018-07-12] MEDS ORDERED: fentaNYL Inj 100 MCG/2 ML VIAL IVP ONE ×2 (10:40→15:58)
[2018-07-12] MEDS ORDERED: LABETALOL 20 MG/4 ML (5 MG/1 ML) SYRINGE IVP STA (11:06)
[2018-07-12] MEDS ORDERED: HYDRALAZINE 20 MG/1 ML IVP ONE (11:22)
[2018-07-12] MEDS ORDERED: LIDOCAINE HCL 2 % 10 ML JELLY URO-JECT TOPICAL PRN (11:27)
[2018-07-12] MEDS ORDERED: METOPROLOL TARTRATE 5 MG/5 ML VIAL IVP ONE (11:55)
[2018-07-12] MEDS ORDERED: METOPROLOL TARTRATE 5 MG/5 ML VIAL ONE (12:03)
[2018-07-12] MEDS ORDERED: DANTROLENE IVP STA ×2 (12:04→14:24)
[2018-07-12 12:13] LABS: VENOUS PH 7.71 (7.32-7.42)
[2018-07-12] MEDS ORDERED: Sodium Chloride 0.9% 1,000 ML ONE ×2 (12:15→13:37)
[2018-07-12 12:16] LABS: BLOOD UREA NITROGEN 9 mg/dL (7-22); SERUM ALBUMIN 3.4 g/dL (3.5-4.8)
[2018-07-12] MEDS ORDERED: Nitroglycerin Drip 25,000 MCG/250 ML BOTTLE IV SCH (12:45)
[2018-07-12] MEDS ORDERED: Sodium Chloride 0.9% 1,000 ML IV SCH (12:45)
[2018-07-12] MEDS ORDERED: ETOMIDATE 2 MG/1 ML - 20 ML IVP ONE (13:00)
[2018-07-12] MEDS ORDERED: ROCURONIUM 10 MG/1 ML - 5 ML VIAL IVP ONE ×3 (13:03→13:08)
[2018-07-12] MEDS: ONDANSETRON 4 MG/2 ML VIAL IVP PRN (13:17)
[2018-07-12] MEDS ORDERED: Norepinephrine Drip 8 MG in D5W 250 ML IV SCH (13:30)
[2018-07-12] MEDS ORDERED: NOREPINEPHRINE BITARTRATE 4 MG/4 ML VIAL IV ONE (13:40)
[2018-07-12] MEDS: MIDAZOLAM IV SCH ×2 (14:01→17:50)
[2018-07-12] MEDS: SODIUM CHLORIDE 0.9% IV SCH ×2 (14:01→17:50)
[2018-07-12] MEDS ORDERED: MIDAZOLAM 5 MG/1 ML ONE ×2 (14:11→15:52)
[2018-07-12] MEDS ORDERED: MIDAZOLAM 5 MG/1 ML IVP ONE ×5 (14:13→15:58)
[2018-07-12 15:11] LABS: ABG PCO2 42 MMHG (34-38); ABG PH 7.39 (7.35-7.45); ABG PO2 99 MMHG (65-75); COLLECTION SITE LEFT RADIAL
[2018-07-12 15:12] LABS: ABG BASE EXCESS 1 MMOL/L (-2-2); ABG OXYGEN SATURATION 98 % (90-100); ALLEN TEST YES
[2018-07-12 15:15] LABS: VENOUS PH 7.68 (7.32-7.42)
--- NOTE | 2018-07-12 15:38 | PROCEDURE1 ---
Procedure - - Date and Time of Service: 07/12/2018 Procedure Performed: Central Line : Non Tunneled Procedure Note: Procedure performed: Right Internal jugular central venous catheter placement Indication for procedure: The patient has hypertension, severe dystonia, agitation, psychosis, and symptoms consistent with neuroleptic malignant syndrome and has need for central line access to manage sedation and medications on a ventilator as well as pressors, with risks discussed as possible arterial puncture, pneumothorax, and localized pain. Benefits for medication administration, blood draws, hemodynamic monitoring, and management of clinical condition. I spoke with the patient's daughter regarding the procedure and she gave me permission to do it. Description of procedure: The patient was prepped and draped in the usual fashion with a full body drape. Ultrasound guidance was used to identify the right IJ vein. The area was cleansed with chlorhexidine. Lidocaine was used for local anesthesia. Using an introducer needle attached to a 5 mL syringe, this was inserted and angled towards the ipsilateral nipple, with ultrasound guidance as well. There was a flash of venous blood as the internal jugular vein was cannulated via the introducer needle. The blood was not pulsatile. A guidewire was inserted through the needle into the internal jugular vein and the needle was removed over the wire. A 10 blade was then used to perform a small dermatotomy at the needle insertion site. The venous dilator was then placed over the guidewire using Seldinger technique, and then removed. 4 port central venous catheter was then placed over the guidewire inserted into the internal jugular vein and the guidewire was removed. All ports were flushed with normal saline. All ports had draw back. The catheter was sutured into place, and the skin was cleansed with chlorhexidine and the catheter was dressed. A postprocedure x-ray showed central venous catheter in place, endotracheal tube in correct location and an orogastric tube in place with no evidence of pneumothorax.. I personally reviewed the chest X-ray. The radiology report states that the right internal jugular central venous catheter terminates in the region of the right atrium. Complications: None apparent at time of procedure Disposition: Patient remains in critical condition awaiting transfer to [facility].
--- NOTE | 2018-07-12 15:43 | DCSUMMARY ---
Hospitalization Summary Admit Date: 07/08/2018 Discharge Date: 07/12/18 Primary Diagnosis:: right total knee arthroplasty Secondary Diagnosis:: Neuroleptic malignant syndrome Hospital Course: This is a very pleasant 77-year-old female that presented for a right knee replacement done by Dr. Chun. See his surgical notes regarding the procedure. The patient postoperatively had been doing very well, it was anticipated that she would proceed towards a swing bed. Her medical issues of diabetes were controlled in terms of her blood sugars. Her hypertension was controlled with holding AMADEO inhibitor. She did set up hypotensive initially but hypertension did eventually come and plan we resumed her lisinopril during the hospital stay. Her blood pressures were well controlled. This morning at around 4 AM, the patient had a significant problems with hallucinations. She was agitated, febrile, hypertensive, and we did a workup to look for infection. A chest x-ray was done and it was negative. A urinalysis was done and it was negative. Blood cultures are drawn and are pending. We gave Tylenol. We tried Haldol due to the hallucinations. The patient had significant dystonia, hyperreflexia, and rigidity, and was completely altered. Her pupils were dilated as well. Given the severity of her presentation, I did discuss with web content director at [facility] and they agreed to accept the patient. We felt it would be best to intubate the patient for airway control and because of the complexities involved with this significant dystonia, febrile appearance , significant hypertension with systolics high end of the 200s to 220s, and that was done. A central line was placed as well. Her sed 150 or above and so she is on just a small amount of Levophed to maintain that. She received a normal saline bolus, and is on normal saline at 75 an hour now. She had Zofran for some nausea as well. Throughout this time, she was completely altered, not responsive to verbal stimuli, however alert, nothing ever looked focal, and she had extremity is moving in all quadrants and brisk reflex on the deep tendon reflex of the left lower extremity. It appears on ear nose and throat examination that she may have bit her tongue. She is tachycardic without murmur. Her lungs are clear without labored breathing. Abdomen was soft and nontender and there is no edema. She complained that she "hurt all over" as the only complaint I can get out of her today. Lumbar puncture was performed by our emergency room physician as well as intubation. We are still waiting on spinal fluid studies. I did a final check out of labs and patient condition to the web content director at [facility] and they asked us to increase the ventilatory rate to 15 respirations per minute and we will increase the levothyroid to try an increased blood pressures to 150 or higher on the systolic side. Assessment and plan: 1. As per discharge assessments noted 2. Disposition: Patient is discharged to [facility] 3. Condition on discharge, stable but condition could deteriorate based on diagnosis 4. Diet: Nothing by mouth 5. Activities: As per [facility] 6. Follow-Up: 1. Primary care provider one week post discharge 2. Please see Dr. Chun as an outpatient for follow-up on the replacement one week post discharge 7. Medications at the Time of Discharge: Active Medications Generic Name Dose Route Start Last Admin Trade Name Freq PRN Reason Stop Dose Admin Acetaminophen 325 - 650 mg 07/08/18 12:48 07/11/18 08:21 Tylenol PO 650 mg Q4H PRN Administration pain or fever Hydrocodone Bitart/Acetaminophen 1 - 2 tab 07/11/18 08:38 07/11/18 13:31 [place] 5/325 Tab PO 1 tab Q4H PRN Administration Pain Al Hydroxide/Mg Hydroxide 10 - 20 ml 07/08/18 12:48 Mylanta Liquid PO Q6H PRN Indigestion Aspirin 81 mg 07/12/18 09:00 07/12/18 09:31 Aspirin Chewable Tab PO 81 mg DAILY CHAVO Administration Bisacodyl 5 mg 07/08/18 12:48 Dulcolax Tab PO BID PRN Constipation Bisacodyl 10 mg 07/08/18 12:48 Bisac-Evac Supp RECTAL ONCE PRN Constipation Calcium Carbonate 1 - 2 tab 07/08/18 12:48 07/10/18 18:04 Tums PO 2 tab Q4H PRN Administration Indigestion Diphenhydramine HCl 25 - 50 mg 07/08/18 12:48 07/12/18 04:20 Benadryl PO 25 mg Q4H PRN Administration Itching Docusate Sodium 100 mg 07/08/18 21:00 07/12/18 09:24 Colace PO Not Given BID CHAVO Sodium Chloride 1,000 mls @ 75 mls/hr 07/12/18 12:45 07/12/18 14:18 Normal Saline IV 75 mls/hr .[id number] CHAVO Administration Nitroglycerin/Dextrose 25,000 mcg in 250 mls @ 3 mls/hr 07/12/18 12:45 Tridil Drip IV .TITRATE CHAVO Protocol 5 MCG/MIN Midazolam HCl 50 mg/ Sodium 50 mls @ 1 mls/hr 07/12/18 13:00 07/12/18 15:05 Chloride IV 10.6 mg/hr .TITRATE CHAVO 10.6 mls/hr Titration Protocol 1 MG/HR Norepinephrine Bitartrate 8 mg 258 mls @ 15.48 mls/hr 07/12/18 13:30 15:36 / Dextrose IV 0.56 mcg/min .TITRATE CHAVO 1.1 mls/hr Titration Protocol 8 MCG/MIN Insulin Human Lispro 0 unit 07/08/18 16:00 07/12/18 07:17 Humalog Flexpen Inj SUBCUT 4 unit AC BK PRINCE CHAVO Administration Protocol Labetalol HCl 20 mg 07/12/18 07:08 07/12/18 11:09 Normodyne Inj IVP 20 mg Q4H PRN Administration SBP Greater Than 160 Lactulose 20 gm 07/11/18 12:36 Kristalose Packet PO BID PRN Constipation Lidocaine HCl 10 ml 07/12/18 11:27 Xylocaine Uro-Ject 2% TOPICAL ONCE PRN Discomfort catheter insertion Lisinopril 40 mg 07/12/18 09:00 07/12/18 09:31 Prinivil PO 40 mg DAILY CHAVO Administration Metoprolol Tartrate 25 mg 07/08/18 21:00 07/12/18 09:31 Lopressor Tab PO 25 mg BID CHAVO Administration Ondansetron HCl 4 mg 07/08/18 12:48 07/12/18 13:17 Zofran Inj IVP 4 mg Q4H PRN Administration NAUSEA / VOMITING Ondansetron HCl 8 mg 07/08/18 12:48 07/10/18 13:23 Zofran Odt PO 8 mg Q6H PRN Administration NAUSEA Prochlorperazine Maleate 10 mg 07/08/18 12:48 07/11/18 04:15 Compazine PO 10 mg Q6H PRN Administration NAUSEA Sertraline HCl 25 mg 07/08/18 21:00 07/11/18 20:03 Zoloft PO 25 mg BEDTIME CHAVO Administration Warfarin Sodium 5 mg 07/10/18 21:00 07/11/18 20:04 Coumadin PO 5 mg BEDTIME CHAVO Administration 8. Time, care, counseling and coordination of care for this discharge is greater than 30 minutes. I did tell the daughters that they should not let the patient take any Haldol or Compazine again. Exam - Vitals Vital Signs: Vital Signs Temperature 99.0 F Temperature Source Temporal Artery Scan Pulse Rate [Pulse Oximeter] 90 Pulse Rate 130 Respiratory Rate 12 Blood Pressure [Left Arm] 131/64 Blood Pressure [Right Arm] 104/54 Blood Pressure 140/70 Pulse Ox 99 Oxygen Flow Rate 2 Oxygen Delivery Method Mechanical Ventilator Height 5 ft Weight 118 lb 4.8 oz - General General Appearance: Severe Distress - Eye Eye Exam: POSITIVE: No Scleral Icterus - ENT ENT Exam: POSITIVE: Mucous Membranes Dry - Neck Neck Exam: JVP is Raised - Respiratory Respiratory Exam: POSITIVE: Clear to Auscultation - Bilaterally, Breathing Non Labored - Cardiovascular Cardiovascular Exam: POSITIVE: No Murmur, No Clicks, No Gallops, No Rubs, Tachycardia, JVD - GI/Abdominal GI/Abdominal Exam: POSITIVE: Normal Bowel Sounds, Non Tender, Non Distended, Soft - Extremities Extremities Exam: POSITIVE: No Clubbing Present, No Edema Present, No Cyanosis Present Additional Extremities Exam Details: Bruising in the right lower extremity to be expected post right knee replacement. Nothing that appeared erythematous or infectious - Neurological Neurological Exam: POSITIVE: Moves All Extremities Equally, Altered Additional Neurological Exam Details: Had discoordinated, dystonic movements of extremities bilaterally. She was quite rigid at times as well. - Central Line Examination Central Line Type: Triple Lumen Cath (Quad-Lumen placed in right IJ. Dressing is clean, dry and intact) Data Peritnent Studies: Laboratory Results 07/12/18 07/12/18 07/12/18 Range/Units 04:45 04:45 04:45 WBC 5.82 (4.8-10.8) 10^3/uL RBC 3.17 L (4.20-5.40) 10^6/uL Hgb 9.9 L (12.0-16.0) g/dL Hct 28.6 L (37.0-47.0) % MCV 90.2 (81-99) FL MCH 31.2 H (27-31) PG MCHC 34.6 (33-37) g/dL RDW Std Deviation 41.4 (39-50) fL RDW Coeff of Cassandra 12.9 (11.5-14.5) % Plt Count 268 (140-350) 10*3/uL MPV 10.3 (7.4-12.2) FL PT 15.5 H (9.7-11.4) secs INR 1.50 (0.00-5.90) N/A ABG pH (7.35-7.45) ABG pCO2 (34-38) MMHG ABG pO2 (65-75) MMHG ABG HCO3 (22-26) ABG Total CO2 (23-27) MMOL/L ABG O2 Saturation (90-100) % ABG Base Excess (-2-2) MMOL/L Dev Test VBG pH (7.32-7.42) VBG pCO2 (45-55) mmHg VBG HCO3 (22-26) mmol/L VBG Base Excess (-2-2) MMOL/L FiO2 Sodium 134 L D (135-145) meq/L Potassium 3.7 L (3.8-5.2) meq/L Chloride 101 (98-112) meq/L Carbon Dioxide 24 (23-33) meq/L Anion Gap 9 (5-20) BUN 6 L (7-22) mg/dL Creatinine 0.5 (0.50-1.20) mg/dL BUN/Creatinine Ratio 12.00 (6-20) Glucose 176 H (78-110) mg/dL Calculated Osmolality 279.0 (267-292) mOsm/kg Calcium 8.6 L (8.7-10.7) mg/dL Iron (37-170) UG/DL TIBC (265-497) ug/dL % Saturation (14-50) % Total Bilirubin (0.3-1.2) mg/dL AST (8-39) IU/L ALT (9-52) IU/L Alkaline Phosphatase (38-126) IU/L Total Creatine Kinase (30-136) IU/L Troponin I (< 0.040) ng/mL Total Protein (6.1-8.0) g/dL Albumin (3.5-4.8) g/dL Globulin (2.50-4.10) g/dL Albumin/Globulin Ratio (1.3-2.0) mg/g TSH (0.2700-4.2000) uIU/mL Free T4 (0.93-1.71) ng/dL Ur Collection Type Urine Color (Y) Urine Clarity (CLEAR) Urine pH (5.0-8.5) Ur Specific Benton (1.005-1.030) Urine Protein (NEG) mg/dl Urine Glucose (UA) (NEG) mg/dL Urine Ketones (NEG) Urine Occult Blood (NEG) Urine Nitrate (NEG) Urine Bilirubin (NEG) Urine Urobilinogen (0.2) EU/dL Ur Leukocyte Esterase (NEG) Urine RBC (NONE) /hpf Urine WBC (NONE) Ur Squamous Epith Cells (NONE) Ur Renal Epithelial Cell (NONE) Urine Crystals Urine Bacteria (NONE) Urine Casts (NONE) Urine Mucus (NONE) Urine Trichomonas (NONE) Urine Yeast (NONE) Ur Culture Indicated? 07/12/18 07/12/18 07/12/18 Range/Units 06:00 07:20 08:20 WBC (4.8-10.8) 10^3/uL RBC (4.20-5.40) 10^6/uL Hgb (12.0-16.0) g/dL Hct (37.0-47.0) % MCV (81-99) FL MCH (27-31) PG MCHC (33-37) g/dL RDW Std Deviation (39-50) fL RDW Coeff of Cassandra (11.5-14.5) % Plt Count (140-350) 10*3/uL MPV (7.4-12.2) FL PT (9.7-11.4) secs INR (0.00-5.90) N/A ABG pH (7.35-7.45) ABG pCO2 (34-38) MMHG ABG pO2 (65-75) MMHG ABG HCO3 (22-26) ABG Total CO2 (23-27) MMOL/L ABG O2 Saturation (90-100) % ABG Base Excess (-2-2) MMOL/L Dev Test VBG pH (7.32-7.42) VBG pCO2 (45-55) mmHg VBG HCO3 (22-26) mmol/L VBG Base Excess (-2-2) MMOL/L FiO2 Sodium (135-145) meq/L Potassium (3.8-5.2) meq/L Chloride (98-112) meq/L Carbon Dioxide (23-33) meq/L Anion Gap (5-20) BUN (7-22) mg/dL Creatinine (0.50-1.20) mg/dL BUN/Creatinine Ratio (6-20) Glucose (78-110) mg/dL Calculated Osmolality (267-292) mOsm/kg Calcium (8.7-10.7) mg/dL Iron (37-170) UG/DL TIBC (265-497) ug/dL % Saturation (14-50) % Total Bilirubin (0.3-1.2) mg/dL AST (8-39) IU/L ALT (9-52) IU/L Alkaline Phosphatase (38-126) IU/L Total Creatine Kinase 156 H (30-136) IU/L Troponin I < 0.012 (< 0.040) ng/mL Total Protein (6.1-8.0) g/dL Albumin (3.5-4.8) g/dL Globulin (2.50-4.10) g/dL Albumin/Globulin Ratio (1.3-2.0) mg/g TSH (0.2700-4.2000) uIU/mL Free T4 (0.93-1.71) ng/dL Ur Collection Type Clean catch urine Urine Color Yellow (Y) Urine Clarity Clear (CLEAR) Urine pH 8.5 (5.0-8.5) Ur Specific Benton 1.015 (1.005-1.030) Urine Protein 30 A (NEG) mg/dl Urine Glucose (UA) Negative (NEG) mg/dL Urine Ketones 40 (NEG) Urine Occult Blood Trace-intact H (NEG) Urine Nitrate Negative (NEG) Urine Bilirubin Negative (NEG) Urine Urobilinogen 0.2 (0.2) EU/dL Ur Leukocyte Esterase Negative (NEG) Urine RBC 1-3 (NONE) /hpf Urine WBC 0-1 (NONE) Ur Squamous Epith Cells Few (NONE) Ur Renal Epithelial Cell Rare (NONE) Urine Crystals None Urine Bacteria None (NONE) Urine Casts None (NONE) Urine Mucus Moderate (NONE) Urine Trichomonas None (NONE) Urine Yeast None (NONE) Ur Culture Indicated? Culture not set 07/12/18 07/12/18 07/12/18 Range/Units 11:10 11:21 11:36 WBC (4.8-10.8) 10^3/uL RBC (4.20-5.40) 10^6/uL Hgb (12.0-16.0) g/dL Hct (37.0-47.0) % MCV (81-99) FL MCH (27-31) PG MCHC (33-37) g/dL RDW Std Deviation (39-50) fL RDW Coeff of Cassandra (11.5-14.5) % Plt Count (140-350) 10*3/uL MPV (7.4-12.2) FL PT (9.7-11.4) secs INR (0.00-5.90) N/A ABG pH (7.35-7.45) ABG pCO2 (34-38) MMHG ABG pO2 (65-75) MMHG ABG HCO3 (22-26) ABG Total CO2 (23-27) MMOL/L ABG O2 Saturation (90-100) % ABG Base Excess (-2-2) MMOL/L Dev Test VBG pH (7.32-7.42) VBG pCO2 (45-55) mmHg VBG HCO3 (22-26) mmol/L VBG Base Excess (-2-2) MMOL/L FiO2 Sodium (135-145) meq/L Potassium (3.8-5.2) meq/L Chloride (98-112) meq/L Carbon Dioxide (23-33) meq/L Anion Gap (5-20) BUN (7-22) mg/dL Creatinine (0.50-1.20) mg/dL BUN/Creatinine Ratio (6-20) Glucose (78-110) mg/dL Calculated Osmolality (267-292) mOsm/kg Calcium (8.7-10.7) mg/dL Iron 27 L (37-170) UG/DL TIBC 271 (265-497) ug/dL % Saturation 9.9 L (14-50) % Total Bilirubin (0.3-1.2) mg/dL AST (8-39) IU/L ALT (9-52) IU/L Alkaline Phosphatase (38-126) IU/L Total Creatine Kinase 262 H (30-136) IU/L Troponin I (< 0.040) ng/mL Total Protein (6.1-8.0) g/dL Albumin (3.5-4.8) g/dL Globulin (2.50-4.10) g/dL Albumin/Globulin Ratio (1.3-2.0) mg/g TSH 1.99 (0.2700-4.2000) uIU/mL Free T4 1.51 (0.93-1.71) ng/dL Ur Collection Type Urine Color (Y) Urine Clarity (CLEAR) Urine pH (5.0-8.5) Ur Specific Benton (1.005-1.030) Urine Protein (NEG) mg/dl Urine Glucose (UA) (NEG) mg/dL Urine Ketones (NEG) Urine Occult Blood (NEG) Urine Nitrate (NEG) Urine Bilirubin (NEG) Urine Urobilinogen (0.2) EU/dL Ur Leukocyte Esterase (NEG) Urine RBC (NONE) /hpf Urine WBC (NONE) Ur Squamous Epith Cells (NONE) Ur Renal Epithelial Cell (NONE) Urine Crystals Urine Bacteria (NONE) Urine Casts (NONE) Urine Mucus (NONE) Urine Trichomonas (NONE) Urine Yeast (NONE) Ur Culture Indicated? 07/12/18 07/12/18 07/12/18 Range/Units 11:57 12:03 12:56 WBC (4.8-10.8) 10^3/uL RBC (4.20-5.40) 10^6/uL Hgb (12.0-16.0) g/dL Hct (37.0-47.0) % MCV (81-99) FL MCH (27-31) PG MCHC (33-37) g/dL RDW Std Deviation (39-50) fL RDW Coeff of Cassandra (11.5-14.5) % Plt Count (140-350) 10*3/uL MPV (7.4-12.2) FL PT (9.7-11.4) secs INR (0.00-5.90) N/A ABG pH (7.35-7.45) ABG pCO2 (34-38) MMHG ABG pO2 (65-75) MMHG ABG HCO3 (22-26) ABG Total CO2 (23-27) MMOL/L ABG O2 Saturation (90-100) % ABG Base Excess (-2-2) MMOL/L Dev Test VBG pH 7.71 H 7.68 H (7.32-7.42) VBG pCO2 18 L 19 L (45-55) mmHg VBG HCO3 23 22 (22-26) mmol/L VBG Base Excess 3 H 2 (-2-2) MMOL/L FiO2 Sodium 133 L (135-145) meq/L Potassium 3.6 L (3.8-5.2) meq/L Chloride 100 (98-112) meq/L Carbon Dioxide 21 L (23-33) meq/L Anion Gap 12 (5-20) BUN 9 (7-22) mg/dL Creatinine 0.6 (0.50-1.20) mg/dL BUN/Creatinine Ratio 15.00 (6-20) Glucose 218 H (78-110) mg/dL Calculated Osmolality 281.0 (267-292) mOsm/kg Calcium 8.5 L (8.7-10.7) mg/dL Iron (37-170) UG/DL TIBC (265-497) ug/dL % Saturation (14-50) % Total Bilirubin 1.2 (0.3-1.2) mg/dL AST 29 (8-39) IU/L ALT 28 (9-52) IU/L Alkaline Phosphatase 61 (38-126) IU/L Total Creatine Kinase (30-136) IU/L Troponin I (< 0.040) ng/mL Total Protein 5.9 L (6.1-8.0) g/dL Albumin 3.4 L (3.5-4.8) g/dL Globulin 2.5 (2.50-4.10) g/dL Albumin/Globulin Ratio 1.30 (1.3-2.0) mg/g TSH (0.2700-4.2000) uIU/mL Free T4 (0.93-1.71) ng/dL Ur Collection Type Urine Color (Y) Urine Clarity (CLEAR) Urine pH (5.0-8.5) Ur Specific Benton (1.005-1.030) Urine Protein (NEG) mg/dl Urine Glucose (UA) (NEG) mg/dL Urine Ketones (NEG) Urine Occult Blood (NEG) Urine Nitrate (NEG) Urine Bilirubin (NEG) Urine Urobilinogen (0.2) EU/dL Ur Leukocyte Esterase (NEG) Urine RBC (NONE) /hpf Urine WBC (NONE) Ur Squamous Epith Cells (NONE) Ur Renal Epithelial Cell (NONE) Urine Crystals Urine Bacteria (NONE) Urine Casts (NONE) Urine Mucus (NONE) Urine Trichomonas (NONE) Urine Yeast (NONE) Ur Culture Indicated? 07/12/18 Range/Units 14:49 WBC (4.8-10.8) 10^3/uL RBC (4.20-5.40) 10^6/uL Hgb (12.0-16.0) g/dL Hct (37.0-47.0) % MCV (81-99) FL MCH (27-31) PG MCHC (33-37) g/dL RDW Std Deviation (39-50) fL RDW Coeff of Cassandra (11.5-14.5) % Plt Count (140-350) 10*3/uL MPV (7.4-12.2) FL PT (9.7-11.4) secs INR (0.00-5.90) N/A ABG pH 7.39 (7.35-7.45) ABG pCO2 42 H (34-38) MMHG ABG pO2 99 H (65-75) MMHG ABG HCO3 26 (22-26) ABG Total CO2 27 (23-27) MMOL/L ABG O2 Saturation 98 (90-100) % ABG Base Excess 1 (-2-2) MMOL/L Dev Test Yes VBG pH (7.32-7.42) VBG pCO2 (45-55) mmHg VBG HCO3 (22-26) mmol/L VBG Base Excess (-2-2) MMOL/L FiO2 30 Sodium (135-145) meq/L Potassium (3.8-5.2) meq/L Chloride (98-112) meq/L Carbon Dioxide (23-33) meq/L Anion Gap (5-20) BUN (7-22) mg/dL Creatinine (0.50-1.20) mg/dL BUN/Creatinine Ratio (6-20) Glucose (78-110) mg/dL Calculated Osmolality (267-292) mOsm/kg Calcium (8.7-10.7) mg/dL Iron (37-170) UG/DL TIBC (265-497) ug/dL % Saturation (14-50) % Total Bilirubin (0.3-1.2) mg/dL AST (8-39) IU/L ALT (9-52) IU/L Alkaline Phosphatase (38-126) IU/L Total Creatine Kinase (30-136) IU/L Troponin I (< 0.040) ng/mL Total Protein (6.1-8.0) g/dL Albumin (3.5-4.8) g/dL Globulin (2.50-4.10) g/dL Albumin/Globulin Ratio (1.3-2.0) mg/g TSH (0.2700-4.2000) uIU/mL Free T4 (0.93-1.71) ng/dL Ur Collection Type Urine Color (Y) Urine Clarity (CLEAR) Urine pH (5.0-8.5) Ur Specific Benton (1.005-1.030) Urine Protein (NEG) mg/dl Urine Glucose (UA) (NEG) mg/dL Urine Ketones (NEG) Urine Occult Blood (NEG) Urine Nitrate (NEG) Urine Bilirubin (NEG) Urine Urobilinogen (0.2) EU/dL Ur Leukocyte Esterase (NEG) Urine RBC (NONE) /hpf Urine WBC (NONE) Ur Squamous Epith Cells (NONE) Ur Renal Epithelial Cell (NONE) Urine Crystals Urine Bacteria (NONE) Urine Casts (NONE) Urine Mucus (NONE) Urine Trichomonas (NONE) Urine Yeast (NONE) Ur Culture Indicated? Patient Problems - Patient Problem List (1) Neuroleptic malignant syndrome Current Visit: Yes Status: Acute Code(s): G21.0 - Malignant neuroleptic syndrome Category: Medical (2) Status post right knee replacement Current Visit: Yes Status: Acute Code(s): Z96.651 - Presence of right artificial knee joint Category: Medical (3) Diabetes Current Visit: Yes Status: Acute Comment: No changes. Blood sugars reviewed and noted. Code(s): E11.9 - Type 2 diabetes mellitus without complications Qualifiers: Diabetes mellitus type: type 2 Diabetes mellitus watermaster insulin use: without watermaster use Diabetes mellitus complication status: without complication Qualified Code(s): E11.9 - Type 2 diabetes mellitus without complications Category: Medical (4) Hypertension Current Visit: Yes Status: Chronic Comment: No changes to management. 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
[2018-07-12] MEDS ORDERED: fentaNYL Inj 100 MCG/2 ML VIAL ONE (15:52)
--- NOTE | 2018-07-12 16:18 | DI ---
EXAM: XR Chest, 1 View CLINICAL HISTORY: ITS.REASON fever Physician Notes: Tech Comments: TECHNIQUE: Frontal view of the chest. COMPARISON: Chest radiograph on 07/12/2018 at 757 hours FINDINGS: Hardware: Interval placement of a right internal jugular central venous catheter which terminates in the region of the right atrium. Interval placement of an endotracheal tube which terminates at the rogelio towards the right mainstem bronchus. Recommend approximately 3-4 cm of retraction. Interval placement of an enteric tube which courses past the diaphragm and out of the field of view. Lungs/pleura: Increased prominence of interstitial markings may represent pulmonary vasculature congestion. No focal consolidation. No pleural effusion or pneumothorax. Heart/mediastinum: Normal. No cardiomegaly. Soft tissues: Unremarkable. Bones: No acute fracture. Left shoulder replacement partially visualized. Degenerative changes of the acromioclavicular joints. ACDF changes in the cervical spine. Upper abdomen: Normal. IMPRESSION: 1. Interval placement of an endotracheal tube which terminates at the rogelio towards the right mainstem bronchus. Recommend approximately 3-4 cm of retraction. 2. Interval placement of a right internal jugular central venous catheter which terminates in the region of the right atrium. Interval placement of an enteric tube which courses past the diaphragm and out of the field of view. 3. Increased prominence of interstitial markings may represent pulmonary vasculature congestion.
[2018-07-12 16:30] VITALS: RESP 14; O2SAT 100
[2018-07-12 16:45] LABS: APPEARANCE, CSF CLEAR (CLEAR)
[2018-07-12 16:46] LABS: COLOR, CSF COLORLESS (COLOR)
[2018-07-12] MEDS ORDERED: Sodium Chloride 0.9% 500 ML PRIMARY IV ONE (16:58)
[2018-07-12] MEDS ORDERED: MIDAZOLAM HCL 50 MG/10 ML VIAL ONE (17:42)
[2018-07-12] MEDS ORDERED: Sodium Chloride 0.9% 50 ML ONE (17:43)
[2018-07-12] MEDS ORDERED: VECURONIUM BROMIDE 10 MG VIAL ONE (17:50)
[2018-07-12 17:53] VITALS: BP 159/74; TEMP 98.9
--- NOTE | 2018-07-13 02:21 | PDOC(PROG) ---
General Note Progress Note: Procedure note #1 endotracheal intubation. I was called to patient's bedside to intubate the patient because of neuroleptic malignant syndrome. Patient was febrile, rigid, hypertensive, and confused. Decision was made for rapid sequence intubation and 2 peripheral IVs were obtained in the bilateral antecubital fossa. 32 mg of rocuronium and 24 mg of etomidate were pushed IV. Using a glide scope the focal cords were identified and a 70 endotracheal tube was passed without difficulty and the cuff was inflated. There was good color change on CO2 monitor, fogging in the endotracheal tube, no breath sounds in the belly, and bilateral breath sounds were present. An OG tube was then placed. Post intubation x-ray showed ET tube to be in good position. Procedure note #2 lumbar puncture. Because of the patient's fever and recent spinal block a decision was made for lumbar puncture to evaluate for infection. Patient was placed into the left lateral decubitus position and her back was prepped with Betadine. Due to previous attempts at lumbar puncture decision was made to approach at a more superior vertebral level and the L3-L4 interspace was identified and the spinal needle was placed without difficulty. No local anesthesia was utilized because the patient's sedated and intubated condition. Initially the spinal fluid had a pink tinge to it and this cleared by the time the second tube was obtained. Spinal fluid was sent to the lab for studies, the spinal needle was withdrawn and a Band-Aid was applied. Patient was laid recumbent. She tolerated this procedure well.
== END 2018-07-12 18:10 | disposition short-term general hospital (02) | DRG 469 ==
LOC: OPS 06:04 → MED/SURG 12:23
PROVIDERS: ADMIT Orthopaedic Surgery; ATTEND Orthopaedic Surgery